=== PATIENT | male | born 1995 | race Caucasian/White ===

== ENCOUNTER 2016-08-03 22:21 | Emergency (ER) | payer SELFPAY ==
[~2016-08-03] VITALS: Ht 172.7 cm; Wt 76.0 kg
[2016-08-03 22:52] VITALS: BP 161/99; PULSE 99; RESP 16; TEMP 98.3; O2SAT 99
[2016-08-03 22:56] VITALS: BP 161/99; PULSE 96; RESP 14; TEMP 98; O2SAT 100
[2016-08-03] MEDS ORDERED: LORazepam 2 MG/ML VIAL IV PUSH ONE (23:15)
[2016-08-03] MEDS ORDERED: SODIUM CHLOR 0.9% 1000 ML INJ 1,000 ML IV ONE (23:15)
[2016-08-03] MEDS ORDERED: SODIUM CHLORIDE 0.9% FLUSH 5 ML FLUSH IVF PRN (23:15)
[2016-08-03 23:41] VITALS: RESP 16; O2SAT 99
[2016-08-03 23:55] LABS: AUTOMATED NEUTROPHIL # 13.5 TH/MM3 (1.8-7.7); BASOPHIL # 0.1 TH/MM3 (0-0.2); BASOPHIL % 0.4 % (0.0-2.0); EOSINOPHIL # 0.1 TH/MM3 (0-0.4); EOSINOPHIL % 0.4 % (0.0-4.0); HEMATOCRIT 40.3 % (39.0-51.0); HEMO FLAGS DIFF FINAL; LYMPHOCYTE # 0.5 TH/MM3 (1.0-4.8); MEAN CELL VOLUME 87.9 FL (80.0-100.0); MEAN CORPUSCULAR HEMOGLOBIN 29.9 PG (27.0-34.0); MONO % 10.9 % (0.0-8.0); NEUT % 85.3 % (16.0-70.0); PLATELET COUNT 232 TH/MM3 (150-450); RED BLOOD COUNT 4.59 MIL/MM3 (4.50-5.90); RED CELL DISTRIBUTION WIDTH 12.6 % (11.6-17.2); WHITE BLOOD COUNT 15.8 TH/MM3 (4.0-11.0)
[2016-08-04 00:02] LABS: BICARBONATE 28.5 MEQ/L (21.0-32.0); MAGNESIUM 2.1 MG/DL (1.5-2.5); POTASSIUM 3.7 MEQ/L (3.5-5.1)
--- NOTE | 2016-08-04 00:08 | RADRPT ---
EXAM DATE/TIME: 08/03/2016 23:45 [place] COMPARISON: No previous studies available for comparison. INDICATIONS : Chest pain MEDICAL HISTORY : None. SURGICAL HISTORY : None. ENCOUNTER: Initial ACUITY: 1 day PAIN SCORE: Non-responsive. LOCATION: Bilateral chest FINDINGS: A single view of the chest demonstrates the lungs to be symmetrically aerated without evidence of mas s, infiltrate or effusion. The cardiomediastinal contours are unremarkable. Osseous structures are intact. CONCLUSION: No evidence of acute cardiopulmonary disease. Ashutosh Cannon MD on August 04, 2016 at 0:06 Board Certified Radiologist. This report was verified electronically.
--- NOTE | 2016-08-04 01:19 | PD ---
HPI Chief Complaint: Cardiac Complaint Time Seen by Provider: 22:55 Travel History International Travel<30 days: No Contact w/Intl Traveler<30days: No Traveled to known affect area: No History of Present Illness HPI 21-year-old boy reports palpitations which started while he was asleep. He denies chest pain or shortness of breath. Patient works in a farm. He states he spent most of the day drinking Powerade. He smokes about one pack of cigarettes per day. He denies excessive caffeine intake as well as drug abuse. He denies alcoholism. He states he does not feel overly anxious. Evidently similar process occurred in the past and the patient was diagnosed with hypokalemia. Duration about 1 hour or so onset somewhat sudden. [facility] Past Medical History Medical History: Denies Significant Hx Diminished Hearing: No Tetanus Vaccination: Unknown Past Surgical History Surgical History: No Previous Surgery Social History Alcohol Use: No Tobacco Use: Yes (1 ppd ) Substance Use: Yes (occ marijuana) Allergies-Medications (Allergen,Severity, Reaction): Coded Allergies: Amoxicillin (Verified Allergy, Severe, Hives, 08/03/16) Penicillin (Verified Allergy, Severe, Hives, 08/03/16) Reported Meds & Prescriptions Reported Meds & Active Scripts Active No Active Prescriptions or Reported Medications Review of Systems Except as stated in HPI: all other systems reviewed are Neg General / Constitutional: No: Fever, Chills Cardiovascular: No: Chest Pain or Discomfort Respiratory: No: Shortness of Breath Physical Exam Narrative GENERAL: 21-year-old male well-nourished well-developed no acute distress SKIN: Warm and dry. HEAD: Atraumatic. Normocephalic. EYES: Pupils equal and round. No scleral icterus. No injection or drainage. ENT: No nasal bleeding or discharge. Mucous membranes pink and moist. NECK: Trachea midline. No JVD. CARDIOVASCULAR: Regular rate and rhythm. No murmur appreciated. RESPIRATORY: No accessory muscle use. Clear to auscultation. Breath sounds equal bilaterally. GASTROINTESTINAL: Abdomen soft, non-tender, nondistended. Hepatic and splenic margins not palpable. MUSCULOSKELETAL: No obvious deformities. No clubbing. No cyanosis. No edema. NEUROLOGICAL: Awake and alert. No obvious cranial nerve deficits. Motor grossly within normal limits. Normal speech. PSYCHIATRIC: Appropriate mood and affect; insight and judgment normal. Data Data Last Documented VS Vital Signs Date Time Temp Pulse Resp B/P Pulse Ox O2 Delivery O2 Flow Rate FiO2 08/03/16 23:41 100 Room Air 08/03/16 23:41 16 08/03/16 22:56 98.0 96 161/99 Orders Electrocardiogram (08/03/16 23:04) Basic Metabolic Panel (Bmp) (08/03/16 23:04) Complete Blood Count With Diff (08/03/16 23:04) Magnesium (Mg) (08/03/16 23:04) Chest, Single Ap (08/03/16 23:04) Ecg Monitoring (08/03/16 23:04) Iv Access Insert/Monitor (08/03/16 23:04) Oximetry (08/03/16 23:04) Oxygen Administration (08/03/16 23:04) Sodium Chloride 0.9% Flush (Ns Flush) (08/03/16 23:15) Sodium Chlor 0.9% 1000 Ml Inj (Ns 1000 M (08/03/16 23:15) Lorazepam Inj (Ativan Inj) (08/03/16 23:15) Labs Laboratory Tests Test 08/03/16 23:35 White Blood Count 15.8 TH/MM3 Red Blood Count 4.59 MIL/MM3 Hemoglobin 13.7 GM/DL Hematocrit 40.3 % Mean Corpuscular Volume 87.9 FL Mean Corpuscular Hemoglobin 29.9 PG Mean Corpuscular Hemoglobin 34.0 % Concent Red Cell Distribution Width 12.6 % Platelet Count 232 TH/MM3 Mean Platelet Volume 8.1 FL Neutrophils (%) (Auto) 85.3 % Lymphocytes (%) (Auto) 3.0 % Monocytes (%) (Auto) 10.9 % Eosinophils (%) (Auto) 0.4 % Basophils (%) (Auto) 0.4 % Neutrophils # (Auto) 13.5 TH/MM3 Lymphocytes # (Auto) 0.5 TH/MM3 Monocytes # (Auto) 1.7 TH/MM3 Eosinophils # (Auto) 0.1 TH/MM3 Basophils # (Auto) 0.1 TH/MM3 CBC Comment DIFF FINAL Differential Comment Sodium Level 142 MEQ/L Potassium Level 3.7 MEQ/L Chloride Level 106 MEQ/L Carbon Dioxide Level 28.5 MEQ/L Anion Gap 8 MEQ/L Blood Urea Nitrogen 5 MG/DL Creatinine 0.79 MG/DL Estimat Glomerular Filtration 122 ML/MIN Rate Random Glucose 86 MG/DL Calcium Level 8.6 MG/DL Magnesium Level 2.1 MG/DL MDM Medical Decision Making Medical Screen Exam Complete: Yes Emergency Medical Condition: Yes Differential Diagnosis NSTEMI, unstable angina, coronary vasospasm, PE, PTX, aortic dissection, pericarditis, myocarditis, endocarditis, PNA, esophageal disease, aneurysm, musculoskeletal etiologies, anxiety, cocaine/sympathomimetic abuse Narrative Course CBC & BMP Diagram 08/03/16 23:35 EKG reveals a sinus rhythm with a rate of 85 axis Q waves are seen in V1-3 and are indeterminate significance. Last 24 hours Impressions Chest X-Ray 08/03/16 3127 Signed Impressions: Service Date/Time: Wednesday, August 03, 2016 23:45 - CONCLUSION: No evidence of acute cardiopulmonary disease. Ashutosh Cannon MD Patient received IV fluids and 0.5 mg Ativan. HR in 80s at at 01:15pm. Patient resting comfortably. Etiology of palpitations is indeterminate. Coronary disease is considered quite unlikely. patient will need to follow up with cardiology for possible echo and/or Holter monitor evaluation. Return precautions discussed. We'll provide a hydrochlorothiazide prescription. Diagnosis Primary Impression: Heart palpitations Additional Impression: Hypertension Qualified Code: I15.9 - Secondary hypertension Referrals: Delfina Tristan MD call for appointment Patient Assistance Program call for appointment Additional Instructions: You have a choice when it comes to health care, and we are glad that you chose [facility]. Hopefully, we have met your expectations on today's visit. You are welcome to return to [facility] at any time, as we are committed to meeting the health care needs of our community. Med/Other Pt SpecificInfo: Prescription(s) given Scripts Hydrochlorothiazide 12.5 Mg Cap12.5 Mg PO HS #30 CAP Ref 2 Prov:Mic Suarez MD 08/04/16 Disposition: DISCHARGE HOME Condition: Stable Mic Suarez MD Aug 04, 2016 01:19
[2016-08-04] MEDS ORDERED: HYDR12.57 PO (01:21)
[2016-08-04 06:00] VITALS: BP 132/68
--- NOTE | 2016-08-04 15:32 | EKG ---
Date Performed: 08/03/2016 Time Performed: 23:31:04 PTAGE: 21 years EKG: Sinus rhythm SEPTAL MYOCARDIAL INFARCTION ABNORMAL ECG NO PREVIOUS TRACING DOCTOR: Vinny Tejada Interpretating Date/Time 08/04/2016 15:31:51
== END 2016-08-04 06:01 | disposition home or self-care (01) ==
LOC: NEPE 22:21 → NEDAMB 08-04 06:01
DX: R00.2 Palpitations (principal); F17.210 Nicotine dependence, cigarettes, uncomplicated; I15.9 Secondary hypertension, unspecified; R94.31 Abnormal electrocardiogram [ECG] [EKG]
CPT/HCPCS: 71010; 80048; 83735; 85025; 93005; 96374; 99285; J2060; J7030